=== PATIENT | female | born 1995 | race Two or more races ===

== ENCOUNTER 2019-06-18 17:57 | Outpatient (CLI) | payer OTHER | END 2019-06-18 17:58 | disposition critical access hospital (66) | LOC: EMS 17:57 | PROVIDERS: ATTEND Surgery | DX: M25.551 Pain in right hip (principal); S09.90XA Unspecified injury of head, initial encounter; V09.20XA Pedestrian injured in traffic accident involving unspecified motor vehicles, initial encounter; Y93.01 Activity, walking, marching and hiking; Y92.414 Local residential or business street as the place of occurrence of the external cause | CPT/HCPCS: A0425; A0429 ==

== ENCOUNTER 2019-06-18 18:15 | Emergency (ER) | payer OTHER ==
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
[2019-06-18] MEDS ORDERED: IBUPROFEN 600 MG TABLET PO STA (19:27)
[2019-06-18] MEDS ORDERED: ACETAMINOPHEN 325 MG TABLET PO STA (19:27)
[2019-06-18 20:11] VITALS: BP 133/80
[2019-06-18 20:20] LABS: HCG UR QUAL NEGATIVE
== END 2019-06-18 20:19 | disposition home or self-care (01) ==
LOC: ED 18:15
DX: S80.11XA Contusion of right lower leg, initial encounter (principal); S00.81XA Abrasion of other part of head, initial encounter; S70.312A Abrasion, left thigh, initial encounter; V03.90XA Pedestrian on foot injured in collision with car, pick-up truck or van, unspecified whether traffic or nontraffic accident, initial encounter; Y93.01 Activity, walking, marching and hiking; Y92.410 Unspecified street and highway as the place of occurrence of the external cause
CPT/HCPCS: 81025; 99282; 99283; A9270